=== PATIENT | male | born 1950 | race Caucasian/White ===

== ENCOUNTER 2017-09-20 10:30 | Day surgery (SDC) | payer OTHER, MEDICARE ==
[~2017-09-20] VITALS: Ht 172.7 cm; Wt 72.6 kg
[~2017-09-20 10:30] MED LIST: LO-DOSE ASPIRIN81 M1 PO; TOPROL XL50 MG PO
[2017-09-20] MEDS ORDERED: STATIN (10:58)
[2017-09-20 11:00] VITALS: BP 137/92
[2017-09-20 11:12] LABS: HEMATOCRIT 39.5 % (38.0-50.0); HEMOGLOBIN 13.4 G/DL (12.5-16.6); MCH 30.9 PG (29.0-34.0); MCHC 33.9 G/DL (30.0-36.0); MCV 91.2 FL (86-99); PLATELET COUNT 180 K/uL (156-360); RBC DIS.WIDTH-CV 12.7 % (11.8-14.6); RBC DIS.WIDTH-SD 42.3 % (39-53); RED BLOOD COUNT 4.33 M/uL (4.00-5.50); WHITE BLOOD COUNT 6.2 K/uL (4.1-10.2)
[2017-09-20 11:53] LABS: CHLORIDE 100 MEQ/L (99-109); CREATININE 4.9 MG/DL (0.6-1.3); GFR ESTIMATE (CALCULATED) 13 mL/min/ (58.99-99999); GLUCOSE 80 mg/dL (70-99); SODIUM 142 MEQ/L (136-147); UREA NITROGEN (BUN) 24 mg/dL (9-23)
[2017-09-20 17:05] VITALS: BP 147/90
[2017-09-20 18:02] VITALS: BP 135/89
[2017-09-20 18:37] VITALS: BP 148/89
== END 2017-09-20 18:45 | disposition home or self-care (01) ==
LOC: SDC 10:30
PROVIDERS: Surgery
DX: I12.0 Hypertensive chronic kidney disease with stage 5 chronic kidney disease or end stage renal disease (principal); N18.6 End stage renal disease; Z99.2 Dependence on renal dialysis; Z85.46 Personal history of malignant neoplasm of prostate; Z85.820 Personal history of malignant melanoma of skin; Z79.82 Long term (current) use of aspirin
CPT/HCPCS: 80048; 85027; 87641; J0690; J1170; J1644; J2405; J2720; J3010